=== PATIENT | male | born 1960 | race Caucasian/White ===

== ENCOUNTER 2019-11-08 09:21 | Day surgery (SDC) | payer OTHER, SELFPAY ==
[~2019-11-08] VITALS: Ht 182.9 cm; Wt 95.3 kg
[~2019-11-08 09:21] MED LIST: AMOX500C25 PO; ENAL10TA34 PO; METR500S14 IV; ORE25 PO
[2019-11-08] MEDS ORDERED: LIDOCAINE 2% 100 MG/5 ML UJET TP ONE ×3 (10:50→13:25)
[2019-11-08] MEDS ORDERED: fentaNYL citrate 0.05 MG/ML VIAL ONE (10:50)
[2019-11-08] MEDS ORDERED: ACETAMINOPHEN EXTRA STRENGTH 500 MG TAB PO SCH (12:05)
[2019-11-08] MEDS ORDERED: ACETAMINOPHEN 325 MG TAB PO ONE (12:10)
== END 2019-11-08 12:20 | disposition home or self-care (01) ==
LOC: MDS 09:21 → MFCC 09:21 → MDS 12:20
PROVIDERS: ATTEND Internal Medicine Gastroenterology
DX: K59.00 Constipation, unspecified (principal); K57.30 Diverticulosis of large intestine without perforation or abscess without bleeding; D12.9 Benign neoplasm of anus and anal canal; I10 Essential (primary) hypertension; K57.32 Diverticulitis of large intestine without perforation or abscess without bleeding; Z20.828 Contact with and (suspected) exposure to other viral communicable diseases; Z98.890 Other specified postprocedural states; Z79.899 Other long term (current) drug therapy; Z90.49 Acquired absence of other specified parts of digestive tract
CPT/HCPCS: 45380; U0003; J3010